=== PATIENT | female | born 1965 | race Two or more races ===

== ENCOUNTER 2017-06-22 21:37 | Emergency (ER) | payer SELFPAY ==
[~2017-06-22] VITALS: Ht 157.5 cm; Wt 68.0 kg
[2017-06-22] MEDS ORDERED: SODIUM CHLORIDE 0.9% 500 ML IVB ONE (22:49)
[2017-06-22] MEDS ORDERED: SODIUM CHLORIDE 0.9% 1,000 ML IV ONE (23:00)
[2017-06-22 23:20] LABS: Allen Test Yes; Base Excess -0.9 mmol/L (-2.0-2.0); Blood 02Sat 95.5 % (96-100); Blood MetHb 0.3 % (0.0-1.5); HCO3 20.7 mmol/L (22-26.0); HHb 4.5 % (0.0-5.0); MODE ROOM AIR; O2Hb 95.2 % (94.0-97.0); PCO2 27.1 mmHg (35.0-45.0); PCO2(T) 27.1 mmHg (35.0-45.0); PO2 81.2 mmHg (80.0-100.0); PO2(T) 81.2 mmHg (80.0-100.0); Sample Type Arterial; pH 7.501 (7.350-7.450)
[2017-06-22] MEDS ORDERED: LORazepam 2MG/ML-1ML VIAL IV ONE (23:30)
[2017-06-22 23:33] LABS: Basophils # (auto) 0.2 uL; Basophils % (auto) 1.4 % (0.0-2.0); Eosinophils # (auto) 0 uL; Eosinophils % (auto) 0.1 % (0.0-7.0); Hematocrit 43.9 % (36.0-46.0); Hemoglobin 14.8 g/dL (12.2-16.2); Lymphocytes # (auto) 1.1 uL; Lymphocytes % (auto) 7.1 % (10.0-50.0); Mean Corpuscular Hemoglobin 27.6 pg (28.0-32.0); Mean Corpuscular Hgb Conc. 33.6 g/dL (32.0-36.0); Mean Corpuscular Volume 82.1 fL (80.0-100.0); Mean Platelet Volume 10.5 fL (7.4-10.4); Monocytes # (auto) 1.1 uL; Monocytes % (auto) 7.3 % (0.0-12.0); Neutrophils # (auto) 13.2 uL; Neutrophils % (auto) 84.1 % (37.0-80.0); Platelet Count (auto) 285 10^3/uL (140-450); Red Cell Distribution Width 11.9 % (11.6-16.0); SUSPECT SEE PRINTOUT; White Blood Cell 15.6 10^3/uL (4.4-10.8)
[2017-06-22 23:47] LABS: Urine RBC None Seen /hpf (0 - 4)
[2017-06-22 23:51] LABS: INR 0.95 (0.9-1.15); Prothrombin Time 10.3 sec (9.37-12.3)
[2017-06-22 23:54] LABS: Albumin 4.1 g/dL (3.4-5.0); Anion Gap 12 (5-15); Aspartate Aminotransferase 43 U/L (15-37); Blood Urea Nitrogen 30 mg/dL (7-18); Calcium 9.6 mg/dL (8.5-10.1); Carbon Dioxide 25 mmol/L (21-32); Chloride 96 mmol/L (98-107); GFR African American 104 mL/min; GFR Non-African American 86 mL/min; Glucose 120 mg/dL (74-106); Potassium 3.3 mmol/L (3.5-5.1); Sodium 133 mmol/L (136-145)
[2017-06-22 23:57] LABS: Urine Bilirubin Negative (Negative); Urine Blood Negative /uL (Negative); Urine Color Yellow (Yellow); Urine Glucose TRACE mg/dL (Normal); Urine Ketone TRACE (Negative); Urine Mucus FEW (None Seen); Urine Nitrite Negative (Negative); Urine Squamous Epithelial Cell FEW /hpf (<5); Urine Urobilinogen Normal (Negative)
[2017-06-22 23:59] LABS: Alkaline Phosphatase 83 U/L (45-117); Bilirubin, Total 0.8 mg/dL (0.2-1.0); Total Protein 8.7 g/dL (6.4-8.2)
[2017-06-23 00:07] LABS: REFLEX LACTIC ACID YES OR NO YES
[2017-06-23] MEDS ORDERED: MIDAZOLAM HCL 5 MG/ML-1ML VIAL ONE ×2 (00:17→00:32)
[2017-06-23] MEDS ORDERED: ETOMIDATE (2MG/ML) 20ML VIAL IV ONE ×2 (00:17→00:30)
[2017-06-23] MEDS ORDERED: SUCCINYLCHOLINE CHLORIDE 20 MG/ML 10ML VIAL IV ONE ×2 (00:17→00:30)
[2017-06-23] MEDS ORDERED: LEVETIRACETAM INJ 1,000 MG in SODIUM CHL 0.9% 100 ML IV ONE ×4 (00:30)
[2017-06-23] MEDS ORDERED: MIDAZOLAM HCL 5 MG/ML-1ML VIAL IV ONE ×2 (00:30→00:45)
[2017-06-23] MEDS ORDERED: LIDOCAINE HCL 100 MG/5ML (2%) SYRG INJ IV ONE ×2 (00:31→01:00)
[2017-06-23] MEDS ORDERED: NICARDIPINE 25MG/250ML BAG KIT 250 ML IV ONE (00:41)
[2017-06-23] MEDS ORDERED: LIDOCAINE 50MG/5ML INJ 5ML SYRINGE IV ONE (00:45)
[2017-06-23] MEDS ORDERED: NICARDIPINE 25MG/250ML BAG KIT 250 ML IV SCH ×2 (00:45→00:46)
[2017-06-23] MEDS: NICARDIPINE 25MG/250ML BAG KIT 250 ML IV SCH ×2 (00:46→01:29)
[2017-06-23] MEDS ORDERED: LEVETIRACETAM 500 MG/5ML INJ IV ONE (00:46)
[2017-06-23] MEDS ORDERED: PROPOFOL 100 ML IV ONE (00:47)
[2017-06-23 01:15] VITALS: BP 130/81
[2017-06-23] MEDS ORDERED: PROPOFOL 100 ML IV SCH (01:35)
== END 2017-06-23 02:14 | disposition short-term general hospital (02) ==
LOC: EDBD 21:37 → ER 21:42
DX: I61.9 Nontraumatic intracerebral hemorrhage, unspecified (principal); R47.81 Slurred speech
CPT/HCPCS: 31500; 36415; 36600; 51702; 70450; 71010; 80053; 80307; 80320; 81001; 82140; 82805; 82962; 83605; 83735; 84484; 85025; 85610; 85730; 87040; 87086; 93005; 96361; 96365; 96367; 96375; 99291; J0330; J1953; J2060; J2250; J2704

== ENCOUNTER 2017-12-29 12:03 | Emergency (ER) | payer MEDICAID ==
[~2017-12-29] VITALS: Ht 160 cm; Wt 68.0 kg
[2017-12-29] MEDS ORDERED: SODIUM CHLORIDE 0.9% 500 ML IVB ONE (12:09)
[2017-12-29 12:59] LABS: Basophils # (auto) 0 uL; Eosinophils # (auto) 0 uL; Monocytes # (auto) 0.5 uL; Neutrophils # (auto) 3.4 uL; White Blood Cell 5.4 10^3/uL (4.4-10.8)
[2017-12-29 13:01] LABS: Basophils % (auto) 0.5 % (0.0-2.0); Eosinophils % (auto) 0.5 % (0.0-7.0); Hematocrit 44.7 % (36.0-46.0); Hemoglobin 14.2 g/dL (12.2-16.2); Lymphocytes # (auto) 1.5 uL; Lymphocytes % (auto) 27.3 % (10.0-50.0); Mean Corpuscular Hemoglobin 26.2 pg (28.0-32.0); Mean Corpuscular Hgb Conc. 31.8 g/dL (32.0-36.0); Mean Corpuscular Volume 82.3 fL (80.0-100.0); Monocytes % (auto) 9.1 % (0.0-12.0); Neutrophils % (auto) 62.6 % (37.0-80.0); Nucleated Red Blood Cells % 0.2 %; Platelet Count (auto) 216 10^3/uL (140-450); Red Blood Cells 5.43 10^6/uL (4.0-5.20); Red Cell Distribution Width 15.3 % (11.8-14.3)
[2017-12-29 13:21] LABS: Alanine Aminotransferase 22 U/L (13-56); Albumin 3.7 g/dL (3.4-5.0); Alkaline Phosphatase 88 U/L (45-117); Anion Gap 9 (5-15); Aspartate Aminotransferase 18 U/L (15-37); BUN/Creatinine Ratio 18.9; Bilirubin, Total 0.5 mg/dL (0.2-1.0); Blood Urea Nitrogen 14 mg/dL (7-18); Calcium 9.3 mg/dL (8.5-10.1); Carbon Dioxide 24 mmol/L (21-32); Chloride 106 mmol/L (98-107); GFR African American 106 mL/min; GFR Non-African American 87 mL/min; Glucose 102 mg/dL (74-106); Magnesium 2.5 mg/dL (1.6-2.6); Potassium 3.6 mmol/L (3.5-5.1); Sodium 139 mmol/L (136-145); Total Protein 7.9 g/dL (6.4-8.2)
[2017-12-29 16:21] VITALS: BP 148/83
[2017-12-29 16:27] LABS: Urine Bacteria MOD /hpf (None Seen); Urine Blood Negative /uL (Negative); Urine Hyaline Cast FEW /lpf (0 - 2); Urine Mucus FEW (None Seen); Urine WBC 4 /hpf (0 - 5)
== END 2017-12-29 17:53 | disposition home or self-care (01) ==
LOC: ER 12:03 → EDBD 12:03 → ER 17:53
DX: R55 Syncope and collapse (principal); E11.9 Type 2 diabetes mellitus without complications; I10 Essential (primary) hypertension; Z86.73 Personal history of transient ischemic attack (TIA), and cerebral infarction without residual deficits
CPT/HCPCS: 36415; 80053; 81001; 83735; 84484; 85025; 93005; 96360; 99285; J7030